=== PATIENT | male | born 1985 | race Caucasian/White ===

== ENCOUNTER 2016-09-01 14:38 | Emergency (ER) | payer SELFPAY ==
[~2016-09-01] VITALS: Ht 165.1 cm; Wt 74.8 kg
[~2016-09-01 14:38] MED LIST: HYDR1TAB PO; NAPR500T PO; SULF1TAB35 PO; SULF1TAB38 PO
[2016-09-01] MEDS ORDERED: MIRT45TA PO (14:56)
--- NOTE | 2016-09-01 15:05 | ED EENT ---
History of Present Illness General Chief Complaint: Fever-Adult/Adol Stated Complaint: FEVER/THROAT PAIN Nursing Triage Note: Ambulatory to ED 10 with reports of fever and sore throat since this morning. " I know I was running a fever, I was just real hot. We dont have a temperature though." Patient reports taking 2000mg Tylenol at 1100. Source: patient Exam Limitations: no limitations History of Present Illness Time seen by provider: 15:03 Initial Comments To ER with reports of sore throat, painful swallowing, chills and general malaise since this morning. No cough. Timing/Duration: abrupt Severity: moderate Location: throat Associated Symptoms: No cough Allergies and Home Medications Allergies Coded Allergies: No Known Drug Allergies (Unverified , 05/31/12) Home Medications Mirtazapine 45 Mg Tablet, 45 MG PO HS, (Reported) Review of Systems Constitutional: see HPI, chills, No fever, No malaise Eyes: No Symptoms Reported Ears: No Symptoms Reported Nose: no symptoms reported Mouth: no symptoms reported Throat: no symptoms reported Respiratory: no symptoms reported Cardiovascular: no symptoms reported Musculoskeletal: no symptoms reported Past Msxxjno-[id number]-Wjffxa Hx Patient Social History Alcohol Use: Denies Use Recreational Drug Use: No Smoking Status: Current Everyday Smoker Type Used: Cigarettes 2nd Hand Smoke Exposure: Yes Recent Foreign Travel: No Contact w/Someone Who Travel: No Recent Infectious Disease Expo: No Recent Hopitalizations: No Immunizations Up To Date Tetanus Booster (TDap): Unknown Surgeries HX Surgeries: No Respiratory Hx Respiratory Disorders: No Cardiovascular Hx Cardiac Disorders: No Neurological Hx Neurological Disorders: No Reproductive System Hx Reproductive Disorders: No Genitourinary Hx Genitourinary Disorders: No Gastrointestinal Hx Gastrointestinal Disorders: No Musculoskeletal Hx Musculoskeletal Disorders: No Endocrine Hx Endocrine Disorders: No HEENT HX ENT Disorders: No Cancer Hx Cancer: No Psychosocial Hx Psychiatric Problems: No Integumentary HX Skin/Integumentary Disorder: No Blood Transfusions Hx Blood Disorders: No Family Medical History Significant Family History: No Pertinent Family Hx Physical Exam Vital Signs Vital Sign - Last 12Hours 09/01/16 14:52 Temp 99.5 Pulse 100 Resp 18 B/P (MAP) 147/91 Pulse Ox 97 O2 Delivery Room Air General Appearance: WD/WN, no apparent distress Eyes: bilateral eye EOMI, bilateral eye PERRL, bilateral eye normal inspection Ears: bilateral ear TM normal, bilateral ear auricle normal, bilateral ear canal normal Mouth/Throat: normal mouth inspection, tonsillar exudate, tonsillar swelling, No trismus, No uvula swelling, No voice changes Neck: non-tender, full range of motion Respiratory: no respiratory distress, no accessory muscle use Gastrointestinal: normal bowel sounds, non tender Neurologic/Psychiatric: alert, normal mood/affect, oriented x 3 Skin: normal color, warm/dry Progress/Results/Core Measures Results/Orders Lab Results Laboratory Tests Test 09/01/16 15:00 Range/Units Group A Streptococcus Screen POSITIVE H NEGATIVE My Orders Orders - PAWAN CARREON APRN Rapid Strep A Screen (09/01/16 14:57) Vital Signs/I&O Vital Sign - Last 12Hours 09/01/16 14:52 Temp 99.5 Pulse 100 Resp 18 B/P (MAP) 147/91 Pulse Ox 97 O2 Delivery Room Air Blood Pressure Mean: 109 Departure Impression Impression: Primary Impression: Strep pharyngitis Disposition: 01 HOME, SELF-CARE Condition: Stable Departure-Patient Inst. Decision time for Depature: 15:17 Referrals: NO,LOCAL PHYSICIAN (PCP/Family) Primary Care Physician Patient Instructions: Strep Throat (DC) Add. Discharge Instructions: 1. Return for concerns or worsening symptoms 2. See your doctor later this week 3. Tylenol and Motrin for any fevers or chills and drink plenty of fluids. All discharge instructions reviewed with patient and/or family. Voiced understanding. PAWAN CARREON APRN Sep 01, 2016 15:05
[2016-09-01] MEDS ORDERED: PEN G BENZ (BICILLIN LA) 1.2 M UN/2 ML SYR IM ONE (15:30)
[2016-09-01] MEDS ORDERED: IBUPROFEN 800 MG (MOTRIN) TAB PO ONE (15:30)
[2016-09-01] MEDS ORDERED: DEXAMETHASONE PF 10 MG/ML (DECADRON) VIAL IM ONE (15:30)
[2016-09-01 15:50] VITALS: BP 142/81
== END 2016-09-01 15:50 | disposition home or self-care (01) ==
LOC: EDUNIT# 14:38 → ER 14:40
DX: J02.0 Streptococcal pharyngitis (principal); F17.210 Nicotine dependence, cigarettes, uncomplicated
CPT/HCPCS: 87430; 96372; 99282